=== PATIENT | male | born 1955 | race Caucasian/White ===

== ENCOUNTER 2023-07-05 03:25 | Day surgery (SDC) | payer BC, SELFPAY ==
[2023-05-09 14:11] VITALS: BMI 26.6
--- NOTE | 2023-05-24 15:43 | PC.NURSE ---
Pt was rescheduled for due to upper resp. virus, spoke with pt today and he is feeling some better but has a loose cough now, advised pt to call on Tuesday and give update on congestion and cough so we can decide if he should be rescheduled for late date.
[2023-06-20 14:42] VITALS: BMI 26.6
--- NOTE | 2023-07-01 11:08 | SUR.PREOP ---
Patient called regarding upcoming procedure. Reviewed preop instructions, appointment times, and procedure prep.
[2023-07-05 07:18] VITALS: BP 137/93; PULSE 95; RESP 20; TEMP 35.9; O2SAT 99
[2023-07-05] MEDS: LACTATED RINGERS 1,000 ML 150 ML IV CONT (07:32)
[2023-07-05 07:33] VITALS: BMI 25.9
[2023-07-05 07:39] LABS: Glucose Point of Care 151 mg/dl (65-105)
--- NOTE | 2023-07-05 08:25 | PM.HPGS ---
History of Present Illness History of Present Illness Consent: Risks, benefits, and alternatives have been discussed and questions answered. Patient agrees to proceed with procedure. Chief complaint: neoplasia screening Narrative: Young Adler is a 68 year old male Presents for screening colonoscopy. Patient reports that his current weight appetite bowel movements are normal. Patient denies abdominal pain. He has had no bleeding. Family history is significant that his paternal grandfather had colon cancer. Patient denies any family history of colon polyps. Patient does have a past medical history of hepatitis-C in subsequent liver transplant. Review of Systems Review of Systems: Review of systems noncontributory. [facility] Past Medical History Medical History (Updated 08/05/20 @ 13:34 by MATT Tran) Hypertension Screening for colon cancer Screening for prostate cancer Type 2 diabetes mellitus Vitamin D deficiency, unspecified Surgical History Surgical History (Updated 08/05/20 @ 12:52 by MATT Tran) Status post liver transplant 1995 Family History Family History (Updated 08/05/20 @ 12:44 by MATT Tran) Father Malignant neoplasm of prostate Grandparent No problems noted. Grandparent No problems noted. Social History Social History (Updated 08/05/20 @ 13:37 by MATT Tran) Smoking packs per day: 0.5 Smoking cigarettes per day: 10.0 Years smoked: 7 Smoking pack-years: 3.50 Smoking status: Former smoker Tobacco type: cigarettes Alcohol intake: current Drinks per week: 6 Substance use type: does not use Living arrangements: with family Occupation/Education: occupation Additional occupation/education comments: [employer] Gender identity (if verbalized by the patient): Male Spiritual care concerns: No Meds Home Medications and Allergies Home Medications Medication Instructions Recorded Confirmed Type aspirin 81 mg tablet,delayed 81 mg PO DAILY 08/05/20 06/20/23 History release calcium carbonate 300 mg (750 mg) 300 mg PO DAILY 08/05/20 06/20/23 History chewable tablet (Tums) cholecalciferol (vitamin D3) 50 50 mcg PO DAILY 08/05/20 06/20/23 History mcg (2,000 unit) capsule mecobalamin (vitamin B12) 1,000 1,000 mcg PO DAILY 08/05/20 06/20/23 History mcg chewable tablet multivitamin 1 tablet PO DAILY 08/05/20 06/20/23 History tacrolimus 1 mg capsule, 2 mg PO BID 08/05/20 06/20/23 History immediate-release (Prograf) losartan 50 mg tablet 50 mg PO DAILY #90 tabs 12/03/20 06/20/23 Rx empagliflozin 10 mg tablet 10 mg PO DAILY 05/09/23 06/20/23 History (Jardiance) Allergies Allergy/AdvReac Type Severity Reaction Status Date / Time hydrocodone Allergy Intermediate rash Verified 07/05/23 07:17 Vital Signs Vital Signs - 24 hr 07/05/23 07:18 Temperature 96.7 F L Pulse Rate 95 Respiratory Rate 20 Blood Pressure 137/93 H Pulse Oximetry 99 Oxygen Delivery Room Air Exam Narrative: Physical exam reveals patient to be alert. Vital signs stable. HEENT exam is unremarkable. Patient is anicteric. Lungs are clear to auscultation and percussion. Heart is without murmur or extra sounds. Abdomen bowel sounds are present soft nontender with no hepatosplenomegaly. Digital external rectal exam normal. Assessment and Plan Assessment and plan (1) Screening for colon cancer: Code(s): Z12.11 - Encounter for screening for malignant neoplasm of colon Status: Acute Assessment and Plan: Patient presents today for neoplasia screening. He has distant family history of colon cancer in his grandfather.
--- NOTE | 2023-07-05 08:35 | WPDANESEPPF ---
Anes - Initial Pre Proc Eval Procedure: Operation Date: 07/05/23 08:30 Proposed Procedures p Colonoscopy - Davis Miller MD Date/Time: 07/05/23 08:35 Surgeon: Davis Miller MD Pre Op Diagnosis: neoplasia screening Patient Data Age: 68 Gender: M Height: 1.75 m Weight: 79.7 kg Last Vital Signs Temp 96.7 F L 07/05/23 07:18 Pulse 95 07/05/23 07:18 Resp 20 07/05/23 07:18 BP 137/93 H 07/05/23 07:18 Pulse Ox 99 07/05/23 07:18 O2 Del Method Room Air 07/05/23 07:18 Allergies Allergy/AdvReac Type Severity Reaction Status Date / Time hydrocodone Allergy Intermediate rash Verified 07/05/23 07:17 Home Medications Medication Instructions Recorded Confirmed Type aspirin 81 mg tablet,delayed 81 mg PO DAILY 08/05/20 06/20/23 History release calcium carbonate 300 mg (750 mg) 300 mg PO DAILY 08/05/20 06/20/23 History chewable tablet (Tums) cholecalciferol (vitamin D3) 50 50 mcg PO DAILY 08/05/20 06/20/23 History mcg (2,000 unit) capsule mecobalamin (vitamin B12) 1,000 1,000 mcg PO DAILY 08/05/20 06/20/23 History mcg chewable tablet multivitamin 1 tablet PO DAILY 08/05/20 06/20/23 History tacrolimus 1 mg capsule, 2 mg PO BID 08/05/20 06/20/23 History immediate-release (Prograf) losartan 50 mg tablet 50 mg PO DAILY #90 tabs 12/03/20 06/20/23 Rx empagliflozin 10 mg tablet 10 mg PO DAILY 05/09/23 06/20/23 History (Jardiance) Laboratory Tests 07/05/23 07:29 POC Capillary Glucose 151 H mg/dl (65-105) Patient hx anesthesia problems: none Family hx anesthesia problems: none Results Review: All pre-operative results and documents have been reviewed as part of the pre-operative evaluation. [facility] Past Medical History Medical History (Updated 08/05/20 @ 13:34 by Celeste Douglas, TRANSITIONAL CARE NURSE-C) Hypertension Screening for colon cancer Screening for prostate cancer Type 2 diabetes mellitus Vitamin D deficiency, unspecified Surgical History Surgical History (Updated 08/05/20 @ 12:52 by MATT Tran) Status post liver transplant 1995 Family History Family History (Updated 08/05/20 @ 12:44 by MATT Tran) Father Malignant neoplasm of prostate Grandparent No problems noted. Grandparent No problems noted. Social History Social History (Updated 08/05/20 @ 13:37 by MATT Tran) Smoking packs per day: 0.5 Smoking cigarettes per day: 10.0 Years smoked: 7 Smoking pack-years: 3.50 Smoking status: Former smoker Tobacco type: cigarettes Alcohol intake: current Drinks per week: 6 Substance use type: does not use Living arrangements: with family Occupation/Education: occupation Additional occupation/education comments: [employer] Gender identity (if verbalized by the patient): Male Spiritual care concerns: No Anes - Eval Final PreProcedure Day of Procedure 07/05/23 08:35 Patient weight: normal Heart: regular rate and rhythm Lungs: clear to auscultation Neurological: alert and oriented Last oral intake: >/= 8 hours ASA classification: III Emergent: no Anesthetic plan: proceed Anesthesia type and monitoring: general GIVS and standard monitoring Results Review: All pre-operative results and documents have been reviewed as part of the pre-operative evaluation. Informed Consent: The patient's anesthetic plan and its attendant risks and benefits were discussed with the patient/family/POA. Questions were solicited and answers provided to the satisfaction of the patient/family/POA.
[2023-07-05 09:34] VITALS: BP 107/73; PULSE 81; RESP 20; O2SAT 96
[2023-07-05 09:44] VITALS: BP 102/78; PULSE 78; RESP 20; O2SAT 95
[2023-07-05 09:50] VITALS: BP 121/79; PULSE 82; RESP 19; O2SAT 99
== END 2023-07-05 10:04 | disposition home or self-care (01) ==
PROVIDERS: PCP Student in an Organized Health Care Education/Training Program; Visit Provider Internal Medicine Gastroenterology
PROC: 0DJD8ZZ Inspection of Lower Intestinal Tract, Via Natural or Artificial Opening Endoscopic (ICD-10-PCS; CPT 45378; principal; 2023-07-05 08:30)
DX: Z12.11 Encounter for screening for malignant neoplasm of colon (principal); K64.8 Other hemorrhoids; I10 Essential (primary) hypertension; E11.9 Type 2 diabetes mellitus without complications; E55.9 Vitamin D deficiency, unspecified; Z79.82 Long term (current) use of aspirin; Z94.4 Liver transplant status; Z87.891 Personal history of nicotine dependence; Z80.0 Family history of malignant neoplasm of digestive organs; Z80.42 Family history of malignant neoplasm of prostate
CPT/HCPCS: 45378; 82948; J2704; J7120